=== PATIENT | male | born 1935 | race Caucasian/White ===

== ENCOUNTER 2016-09-30 06:35 | Day surgery (SDC) | payer MEDICARE ==
[~2016-09-30 06:35] MED LIST: DILT180C56 PO; FINA5TAB77 PO; TAB-TAB PO; TAMS0.4C67 PO; WAL-10TA2 PO
[2016-09-30] MEDS ORDERED: NON-325T6 PO (07:13)
[2016-09-30] MEDS ORDERED: CHLORHEXIDINE GLUCONATE 2 % 1 PACK (2 CLOTHS) TOPICAL SCH (07:15)
[2016-09-30] MEDS ORDERED: Hold AM Insulin & AM Hypoglycemic medications in diabetic patients PRN (07:15)
[2016-09-30] MEDS ORDERED: NO Heparin, Lovenox, Coumadin at least 12 hours prior to procedure. PRN (07:15)
[2016-09-30] MEDS ORDERED: VANCOMYCIN 1000 MG/NS 250 ML IV SCH ×2 (07:15)
[2016-09-30] MEDS ORDERED: POVIDONE IODINE 5% (ANTISEPSIS KIT) 4 APPLICATIONS EACH NARE SCH (07:15)
[2016-09-30] MEDS ORDERED: FISH1000 (07:16)
[2016-09-30] MEDS ORDERED: OCUVTAB PO (07:16)
[2016-09-30] MEDS ORDERED: CO Q10CA (07:16)
[2016-09-30] MEDS ORDERED: XARE20TA PO (07:16)
[2016-09-30] MEDS ORDERED: VIAG50TA PO (07:22)
[2016-09-30] MEDS ORDERED: TAMS0.4C4 PO (07:22)
[2016-09-30] MEDS ORDERED: FINA5TAB2 PO (07:22)
[2016-09-30] MEDS ORDERED: LORA10TA44 PO (07:22)
[2016-09-30] MEDS ORDERED: DILT0.05 PO (07:22)
[2016-09-30] MEDS ORDERED: MULT-159 (07:22)
[2016-09-30] MEDS ORDERED: MIDAZOLAM HCL 2 MG/2 ML VIAL ONE (07:29)
[2016-09-30] MEDS ORDERED: MUPIROCIN 2% OINT 1 APPLIC/GM SYR NASAL SCH (08:00)
--- NOTE | 2016-09-30 09:09 | MA ---
cc: JUAN J ALLEN MD DATE: 09/30/[address] Juan J Allen INDICATION FOR PROCEDURE Atrial fibrillation post ablation with recurrence. POSTPROCEDURE DIAGNOSIS Successful loop recorder insertion. PROCEDURE PERFORMED 1. 15 minutes of monitored IV sedation. 2. Loop recorder insertion. DESCRIPTION OF PROCEDURE The patient was brought to the DOC in the postabsorptive state. After informed consent was obtained 2 mg of Versed and 50 mcg of fentanyl was given for IV sedation. Next, a [employer] LINQ loop recorder was inserted subcutaneously to the left chest. The patient tolerated the procedure well without any apparent complications. The initial R-wave was 0.37 millivolts. Tachybrady pause and atrial fibrillation detection was enabled. The serial number was [id number]. Juan J Allen MD RHONDA/LOLITA /8:54 AM /8:59 AM
== END 2016-09-30 10:03 | disposition home or self-care (01) ==
LOC: HDIC 06:35 → HDOC 06:35
PROVIDERS: ATTEND Nuclear Medicine Nuclear Cardiology
DX: I48.91 Unspecified atrial fibrillation (principal)
CPT/HCPCS: 33282; C1764; J2250; J3010; J3370; J7050